=== PATIENT | male | born 1995 | race Caucasian/White ===

== ENCOUNTER 2018-09-06 10:24 | Emergency (ER) | payer BC ==
[~2018-09-06] VITALS: Ht 180.3 cm; Wt 59.1 kg
[2018-09-06 10:40] VITALS: TEMP 97
[2018-09-06] MEDS ORDERED: ANUSOL-HC SUPPO25 MG RC (11:10)
[2018-09-06 11:33] VITALS: BP 101/67; PULSE 72
== END 2018-09-06 11:37 | disposition home or self-care (01) ==
LOC: COL.ER 10:24
DX: K64.8 Other hemorrhoids (principal)

== ENCOUNTER 2018-09-09 08:20 | Emergency (ER) | payer BC ==
[~2018-09-09] VITALS: Ht 180.3 cm; Wt 59.1 kg
[~2018-09-09 08:20] MED LIST: ANUSOL-HC SUPPO25 MG RC
[2018-09-09 08:23] VITALS: TEMP 97.8
[2018-09-09 08:44] VITALS: BP 129/81; PULSE 96
== END 2018-09-09 08:43 | disposition home or self-care (01) ==
LOC: COL.ER 08:20
DX: K64.9 Unspecified hemorrhoids (principal); Z90.89 Acquired absence of other organs; Z79.52 Long term (current) use of systemic steroids

== ENCOUNTER → 2018-09-11 | Outpatient (CLI) | payer BC | LOC: ZCOL.LAB 17:10 | DX: K61.0 Anal abscess (principal) ==

== ENCOUNTER 2019-01-26 12:36 | Day surgery (SDC) | payer BC ==
[~2019-01-26] VITALS: Ht 180.3 cm; Wt 58.4 kg
[2019-01-26 13:28] VITALS: BP 119/70; PULSE 76; TEMP 98.2
[2019-01-26] MEDS ORDERED: CIPRO 500MG TA500 MG PO (13:38)
[2019-01-26] MEDS ORDERED: FLAGYL500 MG PO (13:38)
[2019-01-26] MEDS ORDERED: PRAMOXINE RC (13:39)
[2019-01-26] MEDS ORDERED: ULTRAM 50MG TAB50 MG PO ×2 (13:39→14:36)
[2019-01-26] MEDS ORDERED: HYDROCORTISONE RC (13:39)
[2019-01-26] MEDS ORDERED: VYVANSE20 MG PO (13:40)
--- NOTE | 2019-01-26 13:42 | NUR ---
TO RM AT 1305- CALL LIGHT IN REACH MOTHER AT BEDSIDE.
--- NOTE | 2019-01-26 15:00 | NUR ---
DR VELAZQUEZ TALKED TO PATIENT AND HIS MOTHER CONCERNING CT AND RESULTS. WILL GIVE PATIENT INFORMATION CONCERNING HEMORRHOIDS PER REQUEST BY MOTHER.
--- NOTE | 2019-01-26 15:10 | NUR ---
PROCEDURE CANCELLED PER DR VELAZQUEZ
--- NOTE | 2019-01-26 15:36 | NUR ---
FLAGYL COMPLETED AND CIPRO 400MG IV STARTED
--- NOTE | 2019-01-26 15:46 | NUR ---
IV PATENT AND IV CIPRO INFUSING WITHOUT DIFFICULTY.
--- NOTE | 2019-01-26 16:08 | NUR ---
AMBULATED TO BATHROOM. VOIDED AND TOLERATED WELL IV PATENT AND INFUSING ANTIBIOTIC.
--- NOTE | 2019-01-26 16:25 | NUR ---
IV ANTIBIOTIC COMPLETE DISCONTINUED IV AND INT- CATHETER INTACT PATIENT GETTING DRESSED
--- NOTE | 2019-01-26 16:26 | NUR ---
RECEIVED DISCHARGE INSTRUCTIONS PATIENT WAITING FOR MOTHER TO RETURN.
--- NOTE | 2019-01-26 16:26 | NUR ---
DISCHARGED PER AMBULATED OUT WITH NURSING STAFF TO PRIVATE CAR IN CARE OF MOTHER.
== END 2019-01-26 16:31 | disposition home or self-care (01) ==
LOC: SDCO 12:36 → EDSTATUS 13:30 → COL.RAD 13:30 → SDCO 16:31
DX: L03.317 Cellulitis of buttock (principal); Z53.9 Procedure and treatment not carried out, unspecified reason
CPT/HCPCS: J0744; J7120; Q9967

== ENCOUNTER 2019-02-12 14:18 | Day surgery (SDC) | payer BC ==
[~2019-02-12] VITALS: Ht 177.8 cm; Wt 55.5 kg
[~2019-02-12 14:18] MED LIST changes: +CIPRO 500MG TA500 MG PO; +FLAGYL500 MG PO; +HYDROCORTISONE RC; +PRAMOXINE RC; +ULTRAM 50MG TAB50 MG PO; +VYVANSE20 MG PO
[2019-02-12 15:05] VITALS: BP 108/87; PULSE 97; TEMP 98.5
[2019-02-12 16:40] VITALS: BP 116/79; PULSE 87; TEMP 97.3
--- NOTE | 2019-02-12 16:40 | NUR ---
Pt returns from endo procedure via cart. Pt ambulates from cart to recliner with RN assist. Pt's mom present in room. Monitors on and alarms set. Call light within reach. Report received from CHAD Trotter. Pt reports same pain as prior to procedure and no nausea. Pt requests muffin and Dr. Castro. Pt alert and answering all questions appropriately. Dr. Lawson in to visit [facility] patient and mom.
[2019-02-12 16:45] VITALS: BP 111/77; PULSE 93
[2019-02-12 17:00] VITALS: BP 140/81; PULSE 80
--- NOTE | 2019-02-12 17:00 | NUR ---
Dr. Lawson finished visiting with patient and Mom.
--- NOTE | 2019-02-12 17:15 | NUR ---
Pt ambulates to bathroom and returns independently.
[2019-02-12 17:20] VITALS: BP 116/83; PULSE 77
--- NOTE | 2019-02-12 17:20 | NUR ---
Pt taking drink with sips. Pt states he has no appetite, which is as prior to the procedure.
[2019-02-12 17:30] VITALS: BP 115/80; PULSE 81
--- NOTE | 2019-02-12 17:40 | NUR ---
Discharge instructions given to patient and Mom. Both have several questions about the plan of care. All questions answered to their satisfaction. Handed to them are a thank you card, discharge instructions, diagnosis information, a patient satisfaction card, procedural photos, and a discharge med sheet. 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
--- NOTE | 2019-02-12 17:50 | NUR ---
Pt transported out of hospital via wheelchair and this RN to private vehicle driven by Mom.
== END 2019-02-12 17:40 | disposition home or self-care (01) ==
LOC: SDCO 14:18
DX: K62.89 Other specified diseases of anus and rectum (principal); R19.7 Diarrhea, unspecified; K92.1 Melena; K21.9 Gastro-esophageal reflux disease without esophagitis; F41.9 Anxiety disorder, unspecified; K59.00 Constipation, unspecified; F32.9 Major depressive disorder, single episode, unspecified
CPT/HCPCS: J2704; J7030